=== PATIENT | female | born 1995 | race Caucasian/White ===

== ENCOUNTER 2016-09-06 13:38 | Emergency (ER) | payer BC ==
[~2016-09-06] VITALS: Ht 157.5 cm; Wt 58.6 kg
[~2016-09-06 13:38] MED LIST: JUNEL FE 1/21 TABLET
[2016-09-06] MEDS ORDERED: QVAR 80 MCG IN7.3 GM IH (14:33)
[2016-09-06 14:39] VITALS: BP 120/78
== END 2016-09-06 14:39 | disposition home or self-care (01) ==
LOC: EME 13:38
DX: F43.9 Reaction to severe stress, unspecified (principal); F41.0 Panic disorder [episodic paroxysmal anxiety]
CPT/HCPCS: 99281; 99284